=== PATIENT | female | born 2005 | race Caucasian/White ===

== ENCOUNTER 2025-01-20 22:57 | Emergency (ER) | payer MEDICAID, SELFPAY ==
--- NOTE | ~2025-01-20 | XR_ITS ---
CLINICAL HISTORY: chest pain, SOB 1 view chest x-ray Comparison: None provided Findings: 2.0 cm round density in the peripheral right lung seen on series 2 may be artifact in the soft tissues however pulmonary nodule can not be excluded. No consolidation, pleural effusion or pneumothorax. Normal size heart. No acute fracture. IMPRESSION: No acute cardiopulmonary findings. 2.0 cm round density in the right lung periphery may be artifact versus pulmonary nodule. Recommend nonemergent CT chest vs. short-term repeat chest x-ray (4-6 weeks) for further evaluation. This document has been electronically signed by: Yamile Castanon MD on 01/20/2025 23:40:32
--- NOTE | 2025-01-20 23:01 | ECG_ITS ---
Test Reason : CP Blood Pressure : */* mmHG Vent. Rate : 61 BPM Atrial Rate : 61 BPM P-R Int : 142 ms QRS Dur : 78 ms QT Int : 374 ms P-R-T Axes : 51 63 32 degrees QTcB Int : 376 ms Sinus rhythm with marked sinus arrhythmia Otherwise normal ECG No previous ECGs available Referred By: Generic ED Physician Electronically Signed By: RODERICK COLIN MD
[2025-01-20 23:08] VITALS: BP 108/62; PULSE 88; RESP 16; TEMP 37; O2SAT 97; BMI 27.5
[2025-01-20 23:24] LABS: Hematocrit 38.9 % (37.0-47.0); Hemoglobin 13.1 g/dl (12.0-16.0); Imm Gran Abs Auto 0.01 X10*3/uL (0.00-0.03); Imm Gran Pct Auto 0.2 % (0.0-0.4); Lymphocytes Absolute Auto 2.1 X10*3/uL (1.2-4.9); MANUAL DIFF FLAG NO; Mean Corpuscular HGB Conc 33.7 g/dl (31.0-35.0); Mean Corpuscular Hemoglobin 28.8 pg (27.0-33.0); Mean Corpuscular Volume 85.5 fL (80.0-98.0); NRBC Abs Auto 0.000 X10*3/uL (0.0-0.012); NRBC Pct Auto 0.0 /100WBC (0.0-0.2); Platelet Count 262 X10*3/uL (160-400); Red Blood Count 4.55 X10*6/uL (4.20-5.50); White Blood Count 6.7 X10*3/uL (4.8-10.8)
[2025-01-20 23:35] LABS: Anion Gap 12 (12-20); Blood Urea Nitrogen 13 mg/dL (9-16); Calcium 8.9 mg/dL (8.4-10.2); Carbon Dioxide 24 mmol/L (22-29); Chloride 107 mmol/L (96-108); Creatinine Clr Calc Pharmacy 133.7; Estimated Glomerular Filt Rate > 60; Potassium 3.9 mmol/L (3.3-5.1); Sodium 139 mmol/L (135-145)
[2025-01-20 23:44] LABS: Troponin-I High Sensitivity < 2.7 ng/L (<3.5-17.0)
--- NOTE | 2025-01-21 00:12 | ED.CHESTPAIN ---
HPI - Chest Pain General Chief Complaint: Chest Pain Stated Complaint: sharp chest pain, SOB Time Seen by Provider: 01/21/25 00:05 Source: patient Mode of arrival: ambulatory Limitations: no limitations History of Present Illness ED Provider: Dr. Greer Nunez HPI narrative: Patient comes to the emergency room complaining of intermittent sharp left-sided chest pain that last anywhere between a few sec and a few minutes, worse with inspiration. Patient states she has this chest pains every month or so. This time no chest pain. Patient states today she had an episode lasting 60 seconds, she got scared and came to the emergency room. Denies shortness of breath. Denies any recent URIs. Related Data Previous Rx's ?Medication ?Instructions ?Recorded ibuprofen 600 mg tablet 600 mg PO Q8H PRN fever or pain 01/21/25 #30 tabs Allergies Allergy/AdvReac Type Severity Reaction Status Date / Time No Known Allergies (No Known Allergy Verified 01/20/25 23:10 Allergies*) Review of Systems Review of Systems: Constitutional : No Weight loss, No Fever, No Chills, No Night Sweats, No Fatigue, No Malaise ENT/Mouth : No Hearing loss, No Ear Pain, No Nasal Congestion, No Sinus Pain, No Hoarseness, No sore throat, No Rhinorrhea, No Swallowing Difficulty Eyes: No Eye Pain, No Swelling, No Redness, No Foreign Body, No Discharge, No Vision Changes Cardiovascular : Complaining of intermittent sharp chest pain worse with deep inspiration, lasting a few sec. self-resolving. No SOB, No Dyspnea on Exertion, No Orthopnea, No Edema, No Palpitations Respiratory : No Cough, No Sputum, No Wheezing, No Smoke Exposure, No Dyspnea Gastrointestinal : No Nausea, No Vomiting, No Diarrhea, No Constipation, No abdominal Pain, No Hematochezia, No Melena Genitourinary : no irregular bleeding, No Dysuria, No Urinary Frequency, No Hematuria, No Urinary Incontinence, No Urgency, No Flank Pain, No Urinary Flow Changes, No Hesitancy Musculoskeletal : No joint pain, No Myalgias, No Joint Swelling Skin : No Skin Lesions, No rash Neuro : No Weakness, No Numbness, No Paresthesias, No Loss of Consciousness, No Dizziness, No Headache Psych : No Anxiety/Panic, No Depression, No SI/HI/AH/VH, No Social Issues, Heme/Lymph: No Bruising, No Bleeding,No Lymphadenopathy Endocrine : No Polyuria, No Polydipsia, No Temperature Intolerance [facility] Social History Social History Smoked in Last 30 Days: Yes Use of substances other than those prescribed or required for medical reasons: No Advance Directives: No Advance Directives Information Provided: No Physical Exam Exam: Exam: Appearance: Alert. Oriented X3. No acute distress. Eyes: Pupils equal, round and reactive to light. ENT: Pharynx normal. Neck: Normal inspection. Neck supple. No lymph nodes noted. No crepitus CVS: Normal heart rate and rhythm. Pulses normal. Normal S1 and S2 Respiratory: No respiratory distress. Breath sounds normal. No Wheezing. No rales Abdomen: Soft and nontender. No rigidity. No distention. Skin: Skin warm and dry. Normal skin color. Normal skin turgor. Extremities: No lower extremity edema. No Lacerations. No Rash Neuro: Oriented X 3. No motor deficit. No sensory deficit. Moving all extremities. No slurred speech. CN 2 through 12 grossly intact Psych: calm, cooperative, normal affect Vital Signs: Vital Signs: Last Vital Signs Temp 98.6 F 01/20/25 23:08 Pulse 88 01/20/25 23:08 Resp 16 01/20/25 23:08 BP 108/62 01/20/25 23:08 Pulse Ox 97 01/20/25 23:08 O2 Del Method Nasal Cannula 01/20/25 23:08 BMI result Body Mass Index 27.5 Medical Decision Making Medical Decision Making [facility] Narrative: My interpretation of EKG: Normal sinus rhythm, heart rate 61, no ST segment depression or elevation, nonspecific T-wave inversion in V1 and V2, QTC 376 My interpretation of labs: Normal hematology chemistry and troponin Chest x-ray was nonspecific, motion artifact versus pulmonary nodule. Patient does not have any red flag symptoms, discussed with the patient that she needs to follow-up with her PCP and have her x-ray repeated in 4-6 weeks. Differential Diagnosis Differential Diagnoses: The differential diagnosis associated with the presentation includes (Pleurisy, musculoskeletal pain, spasms, costochondritis) Lab Data [facility] Lab Attestation statement: I reviewed the patient's lab results. 01/20/25 23:19 01/20/25 23:19 Labs: Lab Results 01/20/25 Range/Units 23:19 WBC 6.7 (4.8-10.8) X10*3/uL RBC 4.55 (4.20-5.50) X10*6/uL Hgb 13.1 (12.0-16.0) g/dl Hct 38.9 (37.0-47.0) % MCV 85.5 (80.0-98.0) fL MCH 28.8 (27.0-33.0) pg MCHC 33.7 (31.0-35.0) g/dl RDW 12.3 (11.0-16.0) % Plt Count 262 (160-400) X10*3/uL MPV 8.8 L (9.4-12.3) fL Immature Gran % (Auto) 0.2 (0.0-0.4) % Neut % (Auto) 53.7 (45-73) % Lymph % (Auto) 31.3 (20-40) % [place] % (Auto) 12.2 H (2-11) % Eos % (Auto) 2.1 (0-4) % Baso % (Auto) 0.5 (0-2) % Lymph # (Auto) 2.1 (1.2-4.9) X10*3/uL [place] # (Auto) 0.8 (0.1-1.2) X10*3/uL Eos # (Auto) 0.1 (0.0-0.4) X10*3/uL Baso # (Auto) 0.0 (0.0-0.2) X10*3/uL Abs Immat Gran (auto) 0.01 (0.00-0.03) X10*3/uL Absolute Neuts (auto) 3.6 (2.0-8.3) x10*3/uL Absolute Nucleated RBC 0.000 (0.0-0.012) X10*3/uL Nucleated RBC % (auto) 0.0 (0.0-0.2) /100WBC Sodium 139 (135-145) mmol/L Potassium 3.9 (3.3-5.1) mmol/L Chloride 107 (96-108) mmol/L Carbon Dioxide 24 (22-29) mmol/L Anion Gap 12 (12-20) BUN 13 (9-16) mg/dL Creatinine 0.68 (0.5-1.4) mg/dL Estim Creat Clear Calc 133.7 Estimated GFR > 60 Random Glucose 79 (60-115) mg/dL Calcium 8.9 (8.4-10.2) mg/dL Troponin I High Sens < 2.7 (<3.5-17.0) ng/L Independent Interpretation I performed an independent interpretation of an: EKG and Plain X-Ray Radiology Impression Discussion of test interpretation with radiology: I have reviewed the radiologist's reading. Radiologist Impression: No acute cardiopulmonary findings. 2.0 cm round density in the right lung periphery may be artifact versus pulmonary nodule. Recommend nonemergent CT chest vs. short-term repeat chest x-ray (4-6 weeks) for further evaluation. Discharge Plan Discharge Clinical Impression: Atypical chest pain, Pleurisy Patient Disposition: Home, Self-Care Instructions: Chest Pain (ED), Pleurisy (DC) Additional Instructions: Please follow-up with your primary care physician tomorrow. Your chest x-ray does not show any acute abnormality, no infiltrates. However, there was motion artifact. Per Radiology recommendations, follow-up with your primary care physician to have the x-ray repeated in 4-6 weeks. If you have any worsening or new symptoms, please return to the emergency room or call 911 Prescriptions: New ibuprofen 600 mg tablet 600 mg PO Q8H PRN (Reason: fever or pain) Qty: 30 0RF Print Language: Polish
[2025-01-21 00:18] VITALS: BP 108/62; PULSE 65; RESP 16; TEMP 37; O2SAT 97
== END 2025-01-21 00:19 | disposition home or self-care (01) ==
PROVIDERS: Emergency Provider Emergency Medicine; PCP Pediatrics Adolescent Medicine
DX: R07.89 Other chest pain (principal); R06.02 Shortness of breath; R09.1 Pleurisy; I49.8 Other specified cardiac arrhythmias; Z79.899 Other long term (current) drug therapy
CPT/HCPCS: 36415; 71045; 80048; 84484; 85025; 93005; 99283; 99284

== ENCOUNTER → 2025-01-20 23:01 | Outpatient (BNV) | payer MEDICAID, SELFPAY | PROVIDERS: Emergency Provider Emergency Medicine; PCP Pediatrics Adolescent Medicine; Visit Provider Internal Medicine Cardiovascular Disease | DX: R07.89 Other chest pain (principal) | CPT/HCPCS: 93010 ==

== ENCOUNTER → 2025-01-20 23:28 | Outpatient (BNV) | payer MEDICAID, SELFPAY | PROVIDERS: Emergency Provider Emergency Medicine; PCP Pediatrics Adolescent Medicine; Visit Provider Radiology Diagnostic Radiology | DX: R91.8 Other nonspecific abnormal finding of lung field (principal) | CPT/HCPCS: 71045 ==